=== PATIENT | male | born 1990 | race Caucasian/White ===

== ENCOUNTER 2021-10-15 07:26 | Emergency (ER) | payer SELFPAY ==
[~2021-10-15] VITALS: Ht 162.6 cm; Wt 66.7 kg
[~2021-10-15 07:26] MED LIST: CYCL10 PO; IBUP600 PO; Ultram50 MG PO
[2021-10-15] MEDS ORDERED: Bactrim Ds Tab1 EACH PO (08:26)
== END 2021-10-15 08:42 | disposition home or self-care (01) ==
LOC: ER 07:26
DX: L02.31 Cutaneous abscess of buttock (principal); J45.909 Unspecified asthma, uncomplicated
CPT/HCPCS: 10061; 99283-25

== ENCOUNTER 2021-11-10 11:06 | Emergency (ER) | payer SELFPAY ==
[~2021-11-10] VITALS: Ht 162.6 cm; Wt 62.6 kg
[~2021-11-10 11:06] MED LIST changes: +Bactrim Ds Tab1 EACH PO
[2021-11-10] MEDS ORDERED: Bactrim Ds Tab1 EACH PO (12:01)
== END 2021-11-10 12:08 | disposition home or self-care (01) ==
LOC: ER 11:06
DX: L02.31 Cutaneous abscess of buttock (principal)
CPT/HCPCS: 10160; 99282-25

== ENCOUNTER 2021-12-09 10:17 | Emergency (ER) | payer SELFPAY ==
[~2021-12-09] VITALS: Ht 162.6 cm; Wt 64.9 kg
[2021-12-09] MEDS ORDERED: Cleocin HCl150 MG PO (12:07)
[2021-12-09] MEDS ORDERED: Bactrim Ds Tab1 EACH PO (12:07)
== END 2021-12-09 12:22 | disposition home or self-care (01) ==
LOC: ER 10:17
DX: L02.31 Cutaneous abscess of buttock (principal); L02.01 Cutaneous abscess of face; J45.909 Unspecified asthma, uncomplicated; Z88.8 Allergy status to other drugs, medicaments and biological substances
CPT/HCPCS: 10061; 99283-25

== ENCOUNTER 2021-12-11 10:42 | Emergency (ER) | payer SELFPAY ==
[~2021-12-11] VITALS: Ht 162.6 cm; Wt 67.1 kg
[~2021-12-11 10:42] MED LIST changes: +Cleocin HCl150 MG PO
== END 2021-12-11 12:23 | disposition home or self-care (01) ==
LOC: ER 10:42
DX: K61.1 Rectal abscess (principal); J45.909 Unspecified asthma, uncomplicated; Z88.8 Allergy status to other drugs, medicaments and biological substances; Z79.899 Other long term (current) drug therapy
CPT/HCPCS: 99282

== ENCOUNTER 2022-04-07 08:22 | Emergency (ER) | payer SELFPAY ==
[~2022-04-07] VITALS: Ht 162.6 cm; Wt 68.0 kg
[2022-04-07] MEDS ORDERED: AMOCLA875 PO (10:54)
== END 2022-04-07 11:39 | disposition home or self-care (01) ==
LOC: ER 08:22
DX: L02.31 Cutaneous abscess of buttock (principal); L03.317 Cellulitis of buttock; J45.909 Unspecified asthma, uncomplicated; Z88.8 Allergy status to other drugs, medicaments and biological substances; Z79.899 Other long term (current) drug therapy
CPT/HCPCS: 10061; 99282-25

== ENCOUNTER 2022-04-10 12:44 | Emergency (ER) | payer SELFPAY ==
[~2022-04-10] VITALS: Ht 157.5 cm; Wt 59.0 kg
[~2022-04-10 12:44] MED LIST changes: +AMOCLA875 PO
== END 2022-04-10 14:03 | disposition home or self-care (01) ==
LOC: ER 12:44
DX: Z48.00 Encounter for change or removal of nonsurgical wound dressing (principal); Z88.8 Allergy status to other drugs, medicaments and biological substances
CPT/HCPCS: 99282

== ENCOUNTER 2022-06-15 21:16 | Emergency (ER) | payer SELFPAY ==
[~2022-06-15] VITALS: Ht 162.6 cm; Wt 68.0 kg
[2022-06-15] MEDS ORDERED: CEPH500 PO (23:44)
== END 2022-06-16 00:05 | disposition home or self-care (01) ==
LOC: ER 21:16
DX: L02.31 Cutaneous abscess of buttock (principal); J45.909 Unspecified asthma, uncomplicated; Z79.899 Other long term (current) drug therapy; Z88.8 Allergy status to other drugs, medicaments and biological substances
CPT/HCPCS: A9270

== ENCOUNTER 2022-06-18 20:20 | Emergency (ER) | payer SELFPAY ==
[~2022-06-18] VITALS: Ht 162.6 cm; Wt 68.0 kg
[~2022-06-18 20:20] MED LIST changes: +CEPH500 PO
== END 2022-06-18 21:05 | disposition home or self-care (01) ==
LOC: ER 20:20
DX: Z48.03 Encounter for change or removal of drains (principal); J45.909 Unspecified asthma, uncomplicated
CPT/HCPCS: 99282

== ENCOUNTER 2022-07-25 22:05 | Emergency (ER) | payer SELFPAY ==
[~2022-07-25] VITALS: Ht 162.6 cm; Wt 68.0 kg
[2022-07-26] MEDS ORDERED: CEPHALEXIN500 M1 PO (00:55)
== END 2022-07-26 01:16 | disposition home or self-care (01) ==
LOC: ER 22:05
DX: L03.317 Cellulitis of buttock (principal); L72.8 Other follicular cysts of the skin and subcutaneous tissue; J45.909 Unspecified asthma, uncomplicated; Z79.899 Other long term (current) drug therapy
CPT/HCPCS: 10061; 99282-25

== ENCOUNTER → 2023-06-19 | Outpatient (CLI) | payer SELFPAY ==
[~2023-06-19] MED LIST changes: +CEPHALEXIN500 M1 PO
== END ==
LOC: LAB SHORT 15:18 → LAB 15:18
DX: N50.819 Testicular pain, unspecified (principal)
CPT/HCPCS: 87086